=== PATIENT | female | born 1945 | race Caucasian/White ===

== ENCOUNTER 2021-06-12 10:23 | Outpatient (CLI) | payer MEDICARE, BC, SELFPAY ==
--- NOTE | 2021-06-12 11:00 | ECG_ITS ---
Measurements Intervals [place] Rate: 71 P: 43 [place]: 207 QRS: -30 QRSD: 105 T: 37 QT: 375 QTc: 410 Interpretive Statements SINUS RHYTHM LEFT AXIS DEVIATION BORDERLINE AV CONDUCTION DELAY ANTEROSEPTAL INFARCT, AGE INDETERMINATE BASELINE ARTIFACT- I, II, III, AVR, AVL, AVF ABNORMAL ECG Electronically Signed On 06-12-2021 11:56:28 MATERIAL CONTROL SUPERVISOR by Raul Fernandez D.O.
[2021-06-12 11:29] LABS: Hematocrit 35.1 % (37.0-47.0); Hemoglobin 11.4 g/dL (12.0-15.0)
[2021-06-12 11:46] LABS: Anion Gap 10 mmol/L (8-16); Blood Urea Nitrogen 33 mg/dL (7-17); Calcium 9.8 mg/dL (8.4-10.2); Carbon Dioxide 27 mmol/L (22-30); Chloride 92 mmol/L (98-107); Estimated Glomerular Filt Rate 44; Glucose 248 mg/dL (65-110); Potassium 4.2 mmol/L (3.4-5.0); Sodium 129 mmol/L (137-145)
== END 2021-06-12 10:24 | disposition home or self-care (01) ==
LOC: ANHSURGERY 10:33
PROVIDERS: Anesthesiology; PCP Family Medicine; Visit Provider Urology
DX: N39.3 Stress incontinence (female) (male) (principal); I10 Essential (primary) hypertension; E11.9 Type 2 diabetes mellitus without complications; D64.9 Anemia, unspecified; Z01.818 Encounter for other preprocedural examination; I45.9 Conduction disorder, unspecified
CPT/HCPCS: 36415; 80048; 85014; 85018; 87086; 87088; 93005

== ENCOUNTER 2021-06-15 00:24 | Day surgery (SDC) | payer MEDICARE, BC, SELFPAY ==
[2021-06-05 15:03] VITALS: BMI 33.3
--- NOTE | 2021-06-05 15:13 | PC.NURSE ---
Report to the Outpatient Waiting Room, entrance under the green pavilion located off [facility], at time _0745_ on date _06/15/21_. OR Time: __0945__. - You and your visitor will be asked a series of questions to screen for COVID 19 for your protection. - A mask is required within the hospital. - Only one visitor is allowed at this time. Patient visitors will be guided where to wait when not with patient. Preoperative COVID Testing Requirements: No COVID Test needed if: (proof is required; if not received patient will have Rapid Test prior to entry) - Patient has received COVID Vaccine at least 14 days prior to procedure date or - Patient has positive COVID test result within last 90 days of surgery date. COVID Test needed if above criteria is not met If not COVID vaccinated a COVID test must be conducted within 72 hours of surgery and patient is asked to isolate self from time of testing until procedure. You will go to the [facility] for your COVID testing. The [facility] is located at the corner of [address] [facility]. You will only be called if COVID results are positive and your surgeon may reschedule your elective surgery date. Patients may have clear liquids (water, carbonated beverages, clear teas, apple juice) until 3 hours prior to surgery with a maximum of 20 ounces. - No food from midnight until time of surgery - Infants may have breast milk until 4 hours before surgery, formula 6 hours prior to surgery. - Children will be allowed to drink immediately following surgery. If applicable, please bring a bottle or sippy cup to assist with drinking. Juice, water, soda, and popsicles are readily available. For infants on formula, please bring formula the day of surgery. Pacifiers are allowed. Take the following medications with a SIP of water the morning of surgery: ____NIFEDIPINE Medications to discontinue per physician __ASPIRIN - DAYS PER DR. SWEENEY, VITAMIN D3 & MULTI VITAMIN - 3 DAYS PER ANESTHESIA_ Date to take last dose__06/09/21, & 06/11/21 Please no make-up, nail panamanian, hairspray, perfume, deodorant, or body powder the day of surgery. No jewelry (including any body piercings) or valuables the day of surgery, leave them at home. Please take a shower or bath the night before, or the morning of, surgery with an antibacterial soap. Wear comfortable, loose fitting clothing. Children are encouraged to wear pajamas. - Jewelry must be removed prior to entering the operating room. Rings and piercings that are not removed may be cut off. - The hospital will not accept responsibility for valuables. - Please leave all valuables, including medications, at home the day of surgery. If you are going home after surgery, a licensed drop hammer pile driver operator must drive you home. - NO public transportation without another adult. - We recommend that an adult stay with you for 24 hours following discharge. - We also recommend that you do not drive, make important decision, drink alcoholic beverages, or take any drugs that were not prescribed by your health care provider for at least 24 hours after your discharge time. For Pediatric surgeries, we recommend two adults accompany the child home (only one inside the building at this time). Follow any additional instructions given to you from your surgeon. Telephone instructions given to __PT and asked if any additional questions and then verbalized understanding. Patient advised to call surgeon office or pre surgery nurse liaison [phone] if any additional questions.
--- NOTE | 2021-06-09 10:22 | PM.IMHP ---
H&P: HPI History of Present Illness Date/Time: 06/09/21 10:22 76-year-old female with mixed urinary incontinence. Her overactive bladder is being treated with medication. She has stress incontinence on exam would like that treated as well. Chief Complaint: stress incontinence Review of Systems Review of Systems: All systems reviewed & are unremarkable except as noted in HPI and below PMFSH Social History Social History Smoking status: Never smoker Second hand tobacco smoke exposure: No Alcohol intake: never Substance use: never Substance use type: does not use Spiritual care concerns: No Meds Home Medications and Allergies Home Medications Medication Instructions Recorded Confirmed Type aspirin 81 mg PO DAILY 06/05/21 06/05/21 History cholecalciferol (vitamin D3) 50 mcg PO QAM 06/05/21 06/05/21 History ferrous sulfate 325 mg PO BID 06/05/21 06/05/21 History glipizide 10 mg PO QAM 06/05/21 06/05/21 History hydrochlorothiazide 25 mg QAM 06/05/21 06/05/21 History linagliptin [Tradjenta] 5 mg PO BID 06/05/21 06/05/21 History metformin 1,000 mg PO BID 06/05/21 06/05/21 History mirabegron [Myrbetriq] 50 mg PO QAM 06/05/21 06/05/21 History multivitamin [Multi-Vitamin] 1 tablet PO DAILY 06/05/21 06/05/21 History nifedipine 60 mg PO QAM 06/05/21 06/05/21 History olmesartan 20 mg QAM 06/05/21 06/05/21 History rosuvastatin 20 mg QAM 06/05/21 06/05/21 History Allergies Allergy/AdvReac Type Severity Reaction Status Date / Time No Known Allergies Allergy Verified 06/05/21 14:56 Exam Narrative: Alert oriented x3 no acute distress stress incontinence on exam with some urethral mobility Assessment and Plan Assessment and plan (1) TRAVIS (stress urinary incontinence, female): Code(s): N39.3 - Stress incontinence (female) (male) Status: Acute Assessment and Plan: urethral sling (2) Urge incontinence: Code(s): N39.41 - Urge incontinence Status: Acute Assessment and Plan: continue medications. Understands that stress incontinence surgery will not help overactive bladder symptoms
--- NOTE | 2021-06-15 07:19 | WPDHPUPDATE1 ---
History and Physical Update Update Date/Time: 06/15/21 07:19 History and Physical has been reviewed, including an updated exam of the patient. There are NO changes in the patient's condition. Risks, benefits, and alternatives have been discussed and questions answered. Patient agrees to proceed with procedure.
[2021-06-15 08:01] VITALS: BMI 33.0
[2021-06-15] MEDS: LACTATED RINGERS 1,000 ML 30 ML IV CONT (08:30)
[2021-06-15 08:37] LABS: Glucose Point of Care 126 mg/dl (65-105)
--- NOTE | 2021-06-15 08:40 | P.PNAN_ITS ---
Anes - Initial Pre Proc Eval Procedure: Operation Date: 06/15/21 09:45 Proposed Procedures p Urethral Sling - Walt Campos MD Date/Time: 06/15/21 08:40 Surgeon: Walt Campos MD Pre Op Diagnosis: sensory urge incontinence, stress incontinence Patient Data Age: 76 Gender: F Height: 1.68 m Weight: 93 kg Allergies Allergy/AdvReac Type Severity Reaction Status Date / Time No Known Allergies Allergy Verified 06/15/21 08:02 Home Medications Medication Instructions Recorded Confirmed Type aspirin 81 mg PO DAILY 06/05/21 06/15/21 History cholecalciferol (vitamin D3) 50 mcg PO QAM 06/05/21 06/15/21 History ferrous sulfate 325 mg PO BID 06/05/21 06/05/21 History glipizide 10 mg PO QAM 06/05/21 06/05/21 History hydrochlorothiazide 25 mg QAM 06/05/21 06/05/21 History linagliptin [Tradjenta] 5 mg PO BID 06/05/21 06/05/21 History metformin 1,000 mg PO BID 06/05/21 06/05/21 History mirabegron [Myrbetriq] 50 mg PO QAM 06/05/21 06/05/21 History multivitamin [Multi-Vitamin] 1 tablet PO DAILY 06/05/21 06/15/21 History nifedipine 60 mg PO QAM 06/05/21 06/05/21 History olmesartan 20 mg QAM 06/05/21 06/05/21 History rosuvastatin 20 mg QAM 06/05/21 06/05/21 History Laboratory Tests 06/15/21 08:31 POC Capillary Glucose 126 mg/dl H mg/dl (65-105) Patient hx anesthesia problems: none Family hx anesthesia problems: none Results Review: All pre-operative results and documents have been reviewed as part of the pre-operative evaluation. [facility] Past Medical History Medical History (Updated 06/15/21 @ 08:41 by Homero Quinones MD) Diabetes HTN (hypertension) Hyperlipidemia Obesity Surgical History Surgical History (Updated 06/15/21 @ 08:44 by Homero Quinones MD) H/O thyroidectomy History of section Social History Social History Smoking status: Never smoker Second hand tobacco smoke exposure: No Alcohol intake: never Substance use: never Substance use type: does not use Living arrangements: with family Spiritual care concerns: No Anes - Eval Final PreProcedure Day of Procedure 06/15/21 08:40 Heart: regular rate and rhythm Lungs: clear to auscultation Airway: Mallampati scale class II Neurological: alert and oriented Last oral intake: >/= 8 hours ASA classification: III Emergent: no Anesthetic plan: proceed Anesthesia type and monitoring: general ETT and standard monitoring Results Review: All pre-operative results and documents have been reviewed as part of the pre-operative evaluation. Informed Consent: The patient's anesthetic plan and its attendant risks and benefits were discussed with the patient/family/POA. Questions were solicited and answers provided to the satisfaction of the patient/family/POA.
--- NOTE | 2021-06-15 08:55 | SUR.PREOP ---
0855- Notified Dr. Campos, David NEGRON and Dr. Quinones that patient's sodium level 129 in February. BMP from today remains pending. Per MD's proceed with procedure.
[2021-06-15] MEDS: ceFAZolin 2 GM/D5W 50 ML 2 GM/50 ML BAG IVPB (09:01)
[2021-06-15] MEDS: LIDO 1%/EPINEPHRINE 1:100,000 50 ML VIAL 10 ML INFILTRATE (09:20)
[2021-06-15 09:29] LABS: Anion Gap 10 mmol/L (8-16); Blood Urea Nitrogen 32 mg/dL (7-17); Calcium 9.9 mg/dL (8.4-10.2); Carbon Dioxide 25 mmol/L (22-30); Chloride 102 mmol/L (98-107); Estimated CRCL calculation 44 ml/min; Estimated Glomerular Filt Rate 48; Glucose 128 mg/dL (65-110); Potassium 4.6 mmol/L (3.4-5.0); Sodium 137 mmol/L (137-145)
[2021-06-15 09:31] VITALS: BP 115/67; PULSE 87; RESP 12; O2SAT 94
--- NOTE | 2021-06-15 09:37 | W.PM.PROC2 ---
Procedure Note - Detailed Date of Procedure 06/15/21 Pre-op Diagnosis sensory urge incontinence, stress incontinence Post-op Diagnosis same Procedure Performed mid urethral sling cystoscopy Surgeon Walt Campos MD Indications This is a female with confirm stress urinary incontinence. She desires surgical correction. She understands the risks of bleeding, infection, injury to the urinary tract, vaginal mesh extrusion, urinary tract mesh erosion, obstructive voiding requiring a secondary procedure, hip and leg pain, dyspareunia, inability to improve overactive bladder symptoms. She agrees to proceed. She understands the success rate. She understands it will not help her overactive bladder symptoms. She currently takes Myrbetriq. Description of Procedure She was correctly identified. Informed consent obtained. She was brought the operating room. She was given appropriate anesthesia. She was given appropriate perioperative antibiotics. A time-out performed. I marked out the site of the inner thigh incisions. I anesthetized the skin and made those incisions. I anesthetized the anterior vaginal wall over the mid urethra. I made a 1 cm incision. I dissected out laterally taking great care not to injure the refilled vaginal wall. I passed the helical trocars. First on the left. Then on the right. I did this from the thigh incision towards the vaginal incision. The sling was connected to the trocars and brought out through the thigh incision. I tensioned the sling appropriately. I cut and the plastic sheaths. I then closed the incision with 2 0 Vicryl. On cystoscopy there is no tumors or surgical artifact. There was no surgical artifact in the urethra. I cut the excess sling material. Close incisions with glue. She was awakened and transferred to the PACU in stable condition. Implants Urethral sling Drains No Packing No Pathology none sent Complications No immediate complications Condition stable Disposition PACU
[2021-06-15 10:00] VITALS: BP 139/62; PULSE 74; RESP 14; O2SAT 98
[2021-06-15 10:04] LABS: Glucose Point of Care 125 mg/dl (65-105)
[2021-06-15 10:30] VITALS: BP 123/63; PULSE 73; RESP 16
== END 2021-06-15 10:40 | disposition home or self-care (01) ==
PROVIDERS: Anesthesiology; PCP Family Medicine; Visit Provider Urology
PROC: (CPT 57288; principal; 2021-06-15 09:45)
DX: N39.46 Mixed incontinence (principal); E11.9 Type 2 diabetes mellitus without complications; I10 Essential (primary) hypertension; E78.5 Hyperlipidemia, unspecified; E66.9 Obesity, unspecified; Z68.33 Body mass index [BMI] 33.0-33.9, adult; Z79.82 Long term (current) use of aspirin; Z79.84 Long term (current) use of oral hypoglycemic drugs
CPT/HCPCS: 57288; 36415; 80048; 82948; A9270; C1771; J0690; J1100; J2405; J2704; J3010; J7030; J7120